=== PATIENT | female | born 1985 | race Two or more races ===

== ENCOUNTER 2023-04-14 22:14 | Emergency (ER) | payer OTHER ==
[~2023-04-14] VITALS: Ht 170.2 cm; Wt 118.1 kg
[2023-04-14 22:29] VITALS: PULSE 108; RESP 16; O2SAT 98
[2023-04-14] MEDS ORDERED: HYDROcodone-ACET 10/325MG TAB PO ONE (22:30)
[2023-04-15] MEDS ORDERED: IBUP-1455 PO (00:02)
[2023-04-15] MEDS ORDERED: ACET300T58 PO (00:02)
[2023-04-15 00:16] VITALS: BP 191/126; PULSE 96; RESP 18; O2SAT 97
== END 2023-04-15 00:15 | disposition home or self-care (01) ==
LOC: ER 22:14 → EDBD 22:14 → ER 04-15 00:15
DX: S00.83XA Contusion of other part of head, initial encounter (principal); Y04.2XXA Assault by strike against or bumped into by another person, initial encounter; Y93.89 Activity, other specified; Y92.89 Other specified places as the place of occurrence of the external cause; Y99.8 Other external cause status
CPT/HCPCS: 70450; 70486; 72125